=== PATIENT | female | born 1965 | race Caucasian/White ===

== ENCOUNTER 2019-06-04 11:56 | Emergency (ER) | payer MEDICAID, OTHER ==
[~2019-06-04] VITALS: Ht 172.7 cm; Wt 74.3 kg
[2019-06-04 12:08] VITALS: BP 98/73
== END 2019-06-04 13:15 | disposition home or self-care (01) ==
LOC: ED 13:03
DX: K08.89 Other specified disorders of teeth and supporting structures (principal); F17.200 Nicotine dependence, unspecified, uncomplicated
CPT/HCPCS: 99283

== ENCOUNTER 2019-11-06 08:20 | Emergency (ER) | payer MEDICAID ==
[~2019-11-06] VITALS: Ht 172.7 cm; Wt 77.0 kg
[2019-11-06 08:29] VITALS: BP 91/65
--- NOTE | 2019-11-06 09:40 | NUR ---
Patient/Caregiver given discharge instructions and they have confirmed that they understand the instructions. Patient ambulatory with steady gait.
== END 2019-11-06 09:41 | disposition home or self-care (01) ==
LOC: ED 09:29
DX: J15.9 Unspecified bacterial pneumonia (principal); F17.210 Nicotine dependence, cigarettes, uncomplicated
CPT/HCPCS: 71046; 93005; 99283